=== PATIENT | male | born 1990 | race African-American/Black ===

== ENCOUNTER 2021-02-11 04:31 | Emergency (ER) | payer OTHER ==
[~2021-02-11] VITALS: Ht 167.6 cm; Wt 72.6 kg
--- NOTE | ~2021-02-11 | EMS ---
[facility] [address] [place] [address] EMS Patient Care Report Name: MARCIE HOBBS Room #: DEP [place]ONTE Nur#: [id number] Admission: 02/11/21 Attend Phys: Discharge: 02/11/21 Date of : [birth year] Report #: [id number] THIS REPORT FOR: //name// Report Transmitted: 02/14/2021 16:11 EMS Care Summary [place], [place]/[facility] Incident [id number] @ 02/11/2021 04:07 Incident Location [address] [place] [address] Patient MARCIE HOBBS Male, 31 Years 1990 Patient Address Patient History None Reported, Patient Medications None Reported, Chief Complaint behavioral/delusional Disposition Transported No Lights/[place] Reason Psychiatric Problem/Abnormal Behavior/Suicide Attempt Transported To [facility] Narrative PD was called for person trespassing. pt was unable to answer PD questions approp and they called ambulance for pt medical eval. we arrive to find pt seated in chair, NAD. he is alert and able to give year and month but tells us he is in [facility] and lives in [facility]. he rambles on incoherently. he denies HI/SI. he denies mental health hx or taking any meds. he agrees to transport but refuses d stick, and gets mildly aggressive when we ask to do one. PD rides along for safety. no incidents during transport. [facility] [address] [place] [address] EMS Patient Care Report Name: MARCIE HOBBS [facility] [id number] Admission: 02/11/21 Attend Phys: Discharge: 02/11/21 Date of : [birth year] Report #: [id number] Initial Vitals @04:21P: 73,R: 18,BP: 123/86,Pain: 0/10,GCS: 15,SpO2: 96,Revised Trauma: 12, Assessments @04:13MENTAL:Person Oriented,Time Oriented,SKIN:No Abnormalities,HEENT:Head/Face: No Abnormalities,LUNG SOUNDS:ABDOMEN:PELVIS//GI:EXTREMITIES:PULSE:Radial: 2+ Normal,NEURO:No Abnormalities, Impression Behavioral/psychiatric episode Procedures @04:13ALS AssessmentResponse: Unchanged Timeline 04:03,Call Received 04:03,Dispatch Notified 04:07,Dispatched 04:09,En Route 04:12,On Scene 04:13,At Patient 04:13,ALS Assessment,Response: Unchanged 04:21,BP: 123/86 M,PULSE: 73,RR: 18 R,SPO2: 96 Ox,ETCO2: ,BG: ,PAIN: 0,GCS: 15, 04:25,Depart Scene 04:30,At Destination 04:43,Call Closed Disclaimer v1.1 Copyright 2020 [employer] This EMS Care Summary contains data elements from the applicable legal record (which may be displayed differently). It is designed to provide pertinent information for the following purposes: continuity of care, clinical quality, and state data reporting. The complete legal record is available to ED staff and administrators of the receiving hospital in [facility]'s Patient Tracker. All data is provided "as is."
--- NOTE | ~2021-02-11 | EMS ---
[address] [address] EMS Patient Care Report Name: MARCIE HOBBS Room #: PRE M.R.#: [id number] Admission: Attend Phys: Discharge: Date of : [birth year] Report #: [id number] THIS REPORT FOR: //name// Report Transmitted: 02/11/2021 04:10 EMS Care Summary [place], [place]/[facility] Incident [id number] @ 02/11/2021 04:07 Incident Location [address] [place] [address] Patient MARCIE HOBBS Male, 31 Years 1990 Patient Address Patient History None Reported, Patient Medications None Reported, Chief Complaint behavioral/delusional Disposition Transported No Lights/[place] Reason Psychiatric Problem/Abnormal Behavior/Suicide Attempt Transported To [facility] Narrative PD was called for person trespassing. pt was unable to answer PD questions approp and they called ambulance for pt medical eval. we arrive to find pt seated in chair, NAD. he is alert and able to give year and month but tells us he is in [facility] and lives in [facility] he rambles on incoherently. he denies HI/SI. he denies mental health hx or taking any meds. he agrees to transport but refuses d stick, and gets mildly aggressive when we ask to do one. PD rides along for safety. no incidents during transport. [address] [place] [address] EMS Patient Care Report Name: MARCIE HOBBS Room #: PRE M.R.#: [id number] Admission: Attend Phys: Discharge: Date of : [birth year] Report #: [id number] Initial Vitals @04:21P: 73,R: 18,BP: 123/86,Pain: 0/10,GCS: 15,SpO2: 96,Revised Trauma: 12, Assessments @04:13MENTAL:Person Oriented,Time Oriented,SKIN:No Abnormalities,HEENT:Head/Face: No Abnormalities,LUNG SOUNDS:ABDOMEN:PELVIS//GI:EXTREMITIES:PULSE:Radial: 2+ Normal,NEURO:No Abnormalities, Impression Behavioral/psychiatric episode Procedures @04:13ALS AssessmentResponse: Unchanged Timeline 04:03,Call Received 04:03,Dispatch Notified 04:07,Dispatched 04:09,En Route 04:12,On Scene 04:13,At Patient 04:13,ALS Assessment,Response: Unchanged 04:21,BP: 123/86 M,PULSE: 73,RR: 18 R,SPO2: 96 Ox,ETCO2: ,BG: ,PAIN: 0,GCS: 15, 04:25,Depart Scene 04:30,At Destination 04:43,Call Closed Disclaimer v1.1 Copyright 2020 [employer] This EMS Care Summary contains data elements from the applicable legal record (which may be displayed differently). It is designed to provide pertinent information for the following purposes: continuity of care, clinical quality, and state data reporting. The complete legal record is available to ED staff and administrators of the receiving hospital in [facility]'s Patient Tracker. All data is provided "as is."
[2021-02-11 04:54] LABS: HEMATOCRIT 40.4 % (42.0-52.0); HEMOGLOBIN 13.9 gm/dL (14.0-18.0); MCH 32.8 pg (26.0-34.0); MCHC 34.3 g/dL (28.0-37.0); MCV 95.7 fL (80.0-100.0); RBC 4.23 mil/uL (4.50-6.00); RDW 13.6 % (10.5-14.5); WBC 7.1 thou/uL (4.0-11.0)
[2021-02-11 05:04] LABS: ANION GAP 9 mmol/L (7-16); BUN 9 mg/dL (7-18); CALCIUM 8.1 mg/dL (8.5-10.1); CHLORIDE 104 mmol/L (98-107); CO2 26 mmol/L (21-32); CREATININE 0.9 mg/dL (0.7-1.3); GLUCOSE 96 mg/dL (74-106); POTASSIUM 3.9 mmol/L (3.5-5.1); SODIUM 139 mmol/L (136-145)
[2021-02-11 05:11] LABS: ALBUMIN 3.4 g/dL (3.4-5.0); SALICYLATE < 2.8 mg/dL (2.8-20.0); SGOT 24 U/L (15-37); SGPT 29 U/L (16-63); TOTAL BILIRUBIN 0.4 mg/dL (0.2-1.0); TOTAL PROTEIN 7.1 g/dL (6.4-8.2)
[2021-02-11 08:01] LABS: URINE BILIRUBIN NEGATIVE (Negative); URINE BLOOD 2+ (Negative); URINE CLARITY CLEAR; URINE COLOR YELLOW; URINE GLUCOSE-RANDOM* NEGATIVE (Negative); URINE KETONES NEGATIVE (Negative); URINE LEUKOCYTES-REFLEX NEGATIVE (Negative); URINE NITRITE-REFLEX NEGATIVE (Negative); URINE PROTEIN (DIPSTICK) NEGATIVE (Negative); URINE SPECIFIC GRAVITY 1.015 (1.005-1.035); URINE UROBILINOGEN 0.2 E.U./dl (0.2-1.0)
[2021-02-11 08:08] LABS: AMP/METHAMP Negative (Negative); BARBITURATES Negative (Negative); BENZODIAZEPINES Negative (Negative); COCAINE Negative (Negative); METHADONE Negative (Negative); OPIATES Negative (Negative); PCP Negative (Negative)
[2021-02-11 08:11] LABS: CASTS None Seen /LPF (None Seen); CRYSTALS None Seen /LPF (None Seen); SQUAMOUS 4-10 Moderate /LPF (0-3); URINE RBC 3-10 Few /HPF (NONE SEEN)
[2021-02-11 08:12] LABS: BACTERIA-REFLEX 1-9 Few /HPF (None Seen); URINE WBC-REFLEX 0-5 Rare /HPF (0-5)
--- NOTE | 2021-02-11 14:32 | EKG ---
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 : 1990 Requested By: Walter Osorio Order Number: [id number] MD: Francisco Calderon Measurements Intervals [place] Rate: 61 P: 56 VA: 162 QRS: 79 QRSD: 84 T: 71 QT: 433 QTc: 437 Interpretive Statements Sinus rhythm J Point elev, probable normal early repol pattern No previous ECG available for comparison Electronically Signed On 02-11-2021 14:31:44 CDT by Francisco Calderon [email or web address] <ELECTRONICALLY SIGNED> By: Francisco Calderon MD, [facility] 02/11/21 1431 [phone] Francisco Calderon MD, FACC /EPI
[2021-02-11 14:57] VITALS: BP 94/52
== END 2021-02-11 17:13 | disposition home or self-care (01) ==
LOC: ER 04:31
PROVIDERS: Emergency Medicine
DX: R41.82 Altered mental status, unspecified (principal); F29 Unspecified psychosis not due to a substance or known physiological condition; Z20.822 Contact with and (suspected) exposure to COVID-19